=== PATIENT | female | born 1955 | race Hispanic/Latino ===

== ENCOUNTER 2015-11-30 10:58 | Outpatient (RCR) | payer SELFPAY ==
--- NOTE | 2015-12-03 09:11 | ECHOCARDIOGRAPHY REPORT ---
PROCEDURE PHYSICIAN: AMANDA LONG DATE OF PROCEDURE: 11/30/2015 TWO DIMENSIONAL ECHOCARDIOGRAM REPORT PRIMARY PHYSICIAN: Dr. Wiley OTHER PHYSICIAN: Dr. Long REFERRING PHYSICIAN: ORDERING PHYSICIAN: Linnette Roa APRN INDICATION FOR THE PROCEDURE: Palpitations MEASUREMENTS DERIVED VALUES LV DIAMETER (LAX) NORMALS NORMALS Diastolic 4.4 (3.6-5.2) Eject. Fract. (60%+/-6%) Systolic (2.3-3.9) Diastolic Vol. % Shortening (0.22-0.42) Systolic Vol. Aortic Root 3. IVS THICKNESS Diastolic 0.8 (0.6-1.1) LVPW THICKNESS Diastolic 0.8 (0.6-1.1) LA DIAMETER Systolic 3.6 (2.1-3.7) DESCRIPTION: Two-dimensional echocardiography shows normal global left ventricular systolic function with normal regional wall motion. Aortic, mitral and tricuspid valve leaflets show good leaflet excursion. There is no significant pericardial effusion. Doppler imaging shows trivial to mild mitral and tricuspid regurgitation. There is no Doppler evidence of significant valvular stenosis. Pulmonary artery systolic pressure is approximately 30 to 35 mmHg. There is no Doppler evidence of significant valvular stenosis. Subcostal views are limited. On the views available, there is no distinct evidence of any significant intracardiac shunt on this transthoracic echocardiographic study. Inferior vena cava does appear to have inspiratory collapse. CONCLUSION: 1. Normal global left ventricular systolic function with ejection fraction of approximately 60%. 2. Trivial mitral and tricuspid regurgitation. 3. No evidence of significant valvular stenosis. 4. Pulmonary artery systolic pressure is estimated to be 30 to 35 mmHg. Job ID: [id number] Dictated Date: 12/01/2015 16:05:28 Lamination Technician Date: 12/03/2015 09:06:51 / ines
== END 2016-02-28 | disposition home or self-care (01) ==
LOC: CARD 10:58
PROVIDERS: ATTEND Nurse Practitioner Family
DX: R00.2 Palpitations (principal)
CPT/HCPCS: 93225; 93226; 93306

== ENCOUNTER → 2016-06-19 | Outpatient (CLI) | payer SELFPAY ==
[~2016-06-19] MED LIST: AMLO10TA4 PO; HYDR25TA4 PO; LISI40TA PO; METO50TA2 PO; MULT-974 PO
--- NOTE | 2016-06-20 11:55 | Diagnostic Imaging Report ---
PROCEDURE: MRI pelvis without contrast. TECHNIQUE: Multiplanar, multisequence MRI of the pelvis was performed without contrast. INDICATION: Left adnexal 2.5 cm lesion with internal blood flow seen on ultrasound from 05/10/2015 exam, concerning for a solid mass. FINDINGS: The uterus is 5.8 x 5.4 x 3.2 cm. The junctional zone is slightly widened at 9 mm in caliber with the slight heterogeneity and minimal cystic changes within the myometrium. This could relate to underlying mild adenomyosis. The left ovary is 1.8 x 1.4 x 2 cm and the right ovary is 2.3 x 1.7 x 1.5 cm. No definitive mass is identified. There is no significant free fluid or fluid collection. The urinary bladder demonstrates no focal mass. The pelvic lymph nodes stations demonstrate no adenopathy. The bowel loops within the pelvis appear unremarkable. IMPRESSION: 1. Suggestion of mild uterine adenomyosis. 2. The ovaries are within normal in size. No definite mass is seen. Dictated by: Dictated on workstation # [id number]
== END ==
LOC: RAD 15:56
PROVIDERS: ATTEND Nurse Practitioner Family
DX: N83.202 Unspecified ovarian cyst, left side (principal)
CPT/HCPCS: 72195

== ENCOUNTER 2016-06-27 08:26 | Outpatient (CLI) | payer SELFPAY ==
[2016-06-27] VITALS (15 sets, daily range): BP systolic 94–185; BP diastolic 46–110
[~2016-06-27] VITALS: Ht 162.6 cm; Wt 67.6 kg
[2016-06-27] MEDS ORDERED: LIDOCAINE 1% INJ 20 ML (XYLOCAINE) VIAL INJ ONE (08:45)
[2016-06-27 08:58] LABS: MEAN PLATELET VOLUME 11.1 FL (7.4-10.4); RED BLOOD COUNT 5.08 10^6/uL (4.35-5.85); WHITE BLOOD COUNT 10.5 10^3/uL (4.3-11.0)
[2016-06-27 09:05] LABS: INR 1.3 (0.8-1.4); PROTHROMBIN TIME PATIENT 15.6 SEC (12.2-14.7)
[2016-06-27] MEDS ORDERED: LISI40TA PO (09:09)
[2016-06-27] MEDS ORDERED: MULT-974 PO (09:09)
[2016-06-27] MEDS ORDERED: AMLO10TA4 PO (09:09)
[2016-06-27] MEDS ORDERED: HYDR25TA4 PO (09:09)
[2016-06-27] MEDS ORDERED: METO50TA2 PO (09:09)
[2016-06-27] MEDS: fentaNYL INJECTION 100 MCG/2 ML AMP IVP PRN ×3 (10:06→10:25)
--- NOTE | 2016-06-27 10:23 | Pre-Procedure Progress Note ---
Pre-Procedure Progress Note H&P Reviewed The H&P was reviewed, patient examined and no changes noted. Date H&P Reviewed: June 27, 2016 (t) Time H&P Reviewed: 09:00 Pre-Procedure Diagnosis: hepatitis MACIE MC MD June 27, 2016 10:23
--- NOTE | 2016-06-27 10:24 | Discharge Instructions ---
Discharge Instructions Home Medicaitons Changes Hold any current blood thinner home medications for [24 hours]. MACIE MC MD June 27, 2016 10:24
[2016-06-27] MEDS: HYDROcodone/APAP 5 MG/325 MG (LORTAB) TAB PO PRN ×2 (10:48→11:45)
--- NOTE | 2016-06-27 11:25 | Diagnostic Imaging Report ---
EXAMINATION: US-guided core biopsy-liver. INDICATION: Elevated liver enzymes. Current history and physical and other medical records are reviewed prior to the procedure. CONSENT: Informed consent was obtained from the patient. The risks, benefits, potential complications and alternatives were reviewed and all questions answered to the patient's satisfaction. The patient's vital signs, cardiac rhythm, and pulse oximetry with observed throughout the procedure by qualified nursing personnel. Sedation/medications: Fentanyl 50 mcg IV. No sedatives given otherwise. FINDINGS: The inferior aspect of the right hepatic lobe is the homogeneous with no focal lesion. PROCEDURE: After maximal sterile barrier technique preparation and draping, 1% lidocaine was utilized for local anesthesia. With the patient in supine position, and via anterior approach, a 17-gauge guide needle is introduced into the inferior aspect of the right hepatic lobe under live ultrasound guidance. After confirming adequate positioning with saved ultrasound images, multiple 18 gauge core biopsy specimens were obtained. Gelfoam injected in the tract as the guide needle was removed The patient tolerated the procedure well with no immediate complications. IMPRESSION: Successful US-guided core biopsy of inferior aspect of the right hepatic lobe for a random liver biopsy. Dictated by: Dictated on workstation # [id number]
== END 2016-06-27 14:30 | disposition home or self-care (01) ==
LOC: RAD 08:26 → SURG 11:56 → RAD 14:30
PROVIDERS: ATTEND Family Medicine
DX: K76.89 Other specified diseases of liver (principal); R74.8 Abnormal levels of other serum enzymes
CPT/HCPCS: 36415; 76942; 85027; 85610; 85730; 88307; 88313

== ENCOUNTER → 2017-08-11 | Outpatient (CLI) | payer OTHER ==
[~2017-08-11] MED LIST changes: +METO50TA15 PO; -METO50TA2 PO
--- NOTE | 2017-08-11 12:20 | Diagnostic Imaging Report ---
INDICATION: Routine screening. COMPARISON: No prior mammogram is available for comparison. This is a baseline study. TECHNIQUE: 2D and 3D bilateral screening mammography was performed with CAD. FINDINGS: Both breasts are heterogeneously dense, limiting the sensitivity of mammography. There are benign parenchymal and vascular calcifications bilaterally. There is a cluster of calcifications in the lower and inner aspect of the right breast at posterior depth. Additional views are recommended. No other suspicious calcifications are seen. No mass is identified. The axillae are unremarkable. IMPRESSION: Right breast calcifications. Additional views are recommended for further evaluation. ACR BI-RADS Category 0: Incomplete. (Needs additional imaging evaluation). Result letter will be mailed to the patient. Note: At least 10% of breast cancer is not imaged by mammography. Dictated by: Dictated on workstation # [id number]
== END ==
LOC: RAD 09:59
PROVIDERS: ATTEND Nurse Practitioner Family
DX: Z12.31 Encounter for screening mammogram for malignant neoplasm of breast (principal); R92.1 Mammographic calcification found on diagnostic imaging of breast
CPT/HCPCS: 77067

== ENCOUNTER → 2017-09-04 | Outpatient (CLI) | payer SELFPAY ==
[~2017-09-04] MED LIST changes: +IOHEXOL 350 MG/ML 100 ML (OMNIPAQUE 350) VIAL IV ONE; +NS 50 ML (IVPB) BAG IV ONE
--- NOTE | 2017-09-04 12:28 | Diagnostic Imaging Report ---
PROCEDURE: CT abdomen and pelvis with contrast. TECHNIQUE: Multiple contiguous axial images were obtained through the abdomen and pelvis after administration of intravenous contrast. INDICATION: Bilateral lower pelvic pain for two weeks. COMPARISON: No prior CT studies are available for comparison. FINDINGS: The lung bases are clear. Gas is identified in the right breast from right breast biopsy earlier the same day. Liver demonstrates generalized low density, consistent with hepatic steatosis. There is a low-density lesion in right lobe of the liver measuring 25 mm, suggestive of a cyst. The gallbladder appears surgically absent. The pancreas and spleen are unremarkable. No adrenal mass is detected. The kidneys are unremarkable. Aorta is nonaneurysmal. The small and large bowel loops are normal in caliber. No obstruction is seen. There is no ascites. The bladder and uterus are unremarkable. No abdominal or pelvic lymphadenopathy is seen. IMPRESSION: 1. Hepatic cyst. 2. No acute feature in the abdomen or pelvis is identified. Dictated by: Dictated on workstation # [id number]
== END ==
LOC: RAD 10:35
PROVIDERS: ATTEND Family Medicine
DX: K76.89 Other specified diseases of liver (principal)
CPT/HCPCS: 74177

== ENCOUNTER → 2017-09-04 | Outpatient (CLI) | payer OTHER ==
[~2017-09-04] VITALS: Ht 162.6 cm; Wt 67.6 kg
[~2017-09-04] MED LIST changes: -IOHEXOL 350 MG/ML 100 ML (OMNIPAQUE 350) VIAL IV ONE; +LIDOCAINE 1% INJ 20 ML 20 ML VIAL INJ ONE; +LIDOCAINE 1% INJ 20 ML 20 ML VIAL ONE; -NS 50 ML (IVPB) BAG IV ONE
[2017-09-04 10:48] VITALS: BP 129/70
[2017-09-04 11:40] VITALS: BP 124/69
--- NOTE | 2017-09-04 20:04 | Diagnostic Imaging Report ---
INDICATION: Right breast calcifications. EXAMINATION: Patient presents for stereotactic biopsy. COMPARISON: Correlation is made with the recent mammograms from 08/11/2017 and 08/18/2017. PROCEDURE: Patient was brought to the stereotactic suite and placed in a sitting upright position. The right breast was placed in a mediolateral position. Stereotactic imaging was performed to localize the cluster of microcalcifications in the lower inner right breast. Right breast was then prepped and draped in the usual sterile fashion. The microcalcifications were targeted. A small amount of 1% lidocaine was utilized for local anesthesia. An 8-gauge needle was advanced into the right breast from a medial approach. Four core biopsies were obtained with the vacuum assisted device. Specimen radiograph does show majority of the calcifications located in sample labeled #3. A localizer clip was then deployed. Hemostasis was obtained using manual compression. Patient tolerated the procedure well. Postprocedure mammogram demonstrates the clip in the lower aspect of the right breast. IMPRESSION: Successful stereotactically assisted core biopsy of the cluster of microcalcifications in the lower inner right breast with the vacuum assisted device. Pathology results are currently pending. Dictated by: Dictated on workstation # [id number]
== END ==
LOC: RAD 10:31
PROVIDERS: ATTEND Nurse Practitioner Family
DX: D05.11 Intraductal carcinoma in situ of right breast (principal)
CPT/HCPCS: 19081